=== PATIENT | male | born 1940 | race Caucasian/White ===

== ENCOUNTER 2018-05-26 08:11 | Inpatient (IN) | payer OTHER ==
--- NOTE | 2018-05-26 08:16 | EDPHY ---
H & P Time Seen by Provider: 05/26/18 08:15 HPI/ROS: Chief complaint. Syncope HPI. Patient is a 77-year-old male here by EMS he had 2 syncopal episodes this morning. He was sitting on the toilet and had a syncopal episode and fell off the toilet and skinned his nose. His got him up and into a chair and went to get him some coffee. While she was talking with him she noted that his eyes rolled back and he became somewhat unresponsive for 15 or 20 sec. EMS was called. Patient tells me that he also had an unwitnessed syncopal episode while working at his desk 3-4 days ago. He has had dizzy spells and workup has been normal per his regular healthcare provider at [facility]. He tells me he has no chest pain or shortness of breath. No abdominal pain. No headache or change in his vision. He has not been sick without fever or cough ROS Constitutional. no fever/chills, no weakness Eyes. no problems with vision ENT. no sore throat, no nasal drainage Cardiovascular. no chest pain Respiratory. no shortness of breath, no cough Abdominal. no abdominal pain, no nausea/vomiting, no diarrhea . no problems urinating MS. no calf pain/swelling, no neck/back pain, no joint pain Skin. no rash Lymph. no swollen glands Neuro. Syncope Past Medical/Surgical History: Past medical history significant for hypertension and vertigo Social History: Patient is , nonsmoker, no alcohol Physical Exam: General Appearance: Alert well-developed male no distress vital signs are stable Eyes: Pupils equal and round no pallor or injection. ENT, Mouth: Mucous membranes are moist. Respiratory: There are no retractions, lungs are clear to auscultation. Cardiovascular: Regular rate and rhythm. Gastrointestinal: Abdomen is soft and nontender, no masses, bowel sounds normal. Neurological: Awake and alert, sensory and motor exams grossly normal. Skin: Abrasion to nose Musculoskeletal: Neck is supple nontender. Extremities symmetrical, full range of motion. Psychiatric: Patient is oriented X 3, there is no agitation. Constitutional: Initial Vital Signs Temperature (C) 36.7 C 05/26/18 08:13 Heart Rate 73 05/26/18 08:13 Respiratory Rate 18 05/26/18 08:13 Blood Pressure 182/97 H 05/26/18 08:13 O2 Sat (%) 90 L 05/26/18 08:13 O2 Delivery Mode Nasal Cannula O2 (L/minute) 2 Allergies/Adverse Reactions: aspirin [From Percodan] Allergy (Verified 01/23/11 18:45) lisinopril Allergy (Verified 05/26/18 08:20) oxycodone HCl [From Percodan] Allergy (Verified 05/26/18 08:20) oxycodone terephthalate [From Percodan] Allergy (Verified 05/26/18 08:20) Home Medications: Medication Instructions Recorded Atorvastatin Calcium [Lipitor 20 20 mg PO DAILY 05/26/18 mg (*)] Cholecalciferol Vit D3 [Vitamin D3 1,000 units PO DAILY 05/26/18 (*)] Multivitamins [Multivitamin (*)] 1 each PO DAILY 05/26/18 Vit C/Dl-E AC/Lut/Copper/Znox 1 each PO BID 05/26/18 [Preservision Softgel] Medical Decision Making - Diagnostics EKG Interpretation: EKG interpreted by me shows normal sinus rhythm with borderline first-degree AV block. Left axis deviation. QRS is otherwise normal. There is no significant ST elevation or depression. No arrhythmia. The rate is 68 Imaging Results: One-view chest x-ray interpreted by me is unremarkable Procedures: IV normal saline, monitor ED Course/Re-evaluation: While in taking the patient's history he becomes unresponsive. He has a monitor. Patient had a sinus pause of 13-16 seconds. With a sternal rub he regains heartbeat and consciousness.. Patient is transferred to room 2 and pacer pads are placed. Atropine at bedside I consulted and discussed the case with Dr. Watts, cardiology who sees the patient in the emergency department. The patient, his , and I discussed treatment plan including recommendation for admission and monitoring. They expressed understanding and agreement Differential Diagnosis: It appears that the patient is having syncope due to sinus arrest and periods of asystole. Likely this patient needs a pacemaker. He is on propranolol 10 mg twice daily however this is a fairly low dose and I suspect it is not the likely cause of his sinus pauses and asystole. - Data Points Laboratory Results: Laboratory Results 05/26/18 08:15 05/26/18 08:15 Medications Given: Discontinued Medications Atorvastatin Calcium (Lipitor) 20 mg PO DAILY CHEMO Stop: 11/23/18 08:59 Last Admin: 05/27/18 09:19 Dose: 20 mg Bacitracin (Bacitracin 1000 Ml Irrigation) 50,000 units IRR ONCE ONE Stop: 05/26/18 12:31 Last Admin: 05/26/18 14:20 Dose: Not Given Cholecalciferol (Vitamin D) 1,000 units PO DAILY CHEMO Stop: 11/23/18 08:59 Last Admin: 05/27/18 09:19 Dose: 1,000 units Cefazolin Sodium/Dextrose (Ancef 2 Gm) 100 mls @ 200 mls/hr IV ONCALL ONE Stop: 05/26/18 12:59 Last Admin: 05/26/18 14:20 Dose: Not Given Melatonin (Melatonin) 3 mg PO HS PRN PRN Reason: Sleep/Insomnia Stop: 11/22/18 19:40 Last Admin: 05/26/18 19:58 Dose: 3 mg Multivitamins (Tab-A-Radha) 1 each PO DAILY CHEMO Stop: 11/23/18 08:59 Last Admin: 05/27/18 09:19 Dose: 1 each Multivitamins/Minerals (Preservision Areds2 Formula) 1 each PO BID CHEMO Stop: 11/22/18 20:59 Last Admin: 05/27/18 09:19 Dose: 1 each Point of Care Test Results: Chemistry 05/26/18 08:25 POC Troponin I 0.01 ng/mL ng/mL (0.00-0.08) Departure - Departure Disposition: [facility] Inpatient Acute Clinical Impression: Syncope Qualifiers: Syncope type: unspecified Qualified Code(s): R55 - Syncope and collapse Condition: Good
--- NOTE | 2018-05-26 08:26 | CPEKG ---
Test Reason : OPEN Blood Pressure : / mmHG Vent. Rate : 068 BPM Atrial Rate : 068 BPM P-R Int : 323 ms QRS Dur : 094 ms QT Int : 416 ms P-R-T Axes : 039 -10 043 degrees QTc Int : 443 ms Sinus rhythm Prolonged TX interval Confirmed by Stephan Jones ([id number]) on 05/26/2018 8:25:23 AM Referred By: Confirmed By:Stephan Jones
[2018-05-26 08:29] LABS: PLATELET COUNT 141 10^3/uL (150-400)
[2018-05-26] MEDS ORDERED: ATROPINE SULFATE 1 MG/10 ML SYR ONE (08:47)
[2018-05-26] MEDS ORDERED: ONDANSETRON DISINTEGRATING 4 MG TAB PO PRN (09:40)
[2018-05-26] MEDS ORDERED: ONDANSETRON 4 MG/2 ML VIAL IVP PRN (09:40)
[2018-05-26] MEDS ORDERED: ACETAMINOPHEN 325 MG TAB PO PRN (09:40)
[2018-05-26] MEDS ORDERED: D5W 1/2 NS W/ 20 KCl/L 1,000 ML IV SCH (09:45)
--- NOTE | 2018-05-26 10:38 | PDGENHP ---
History and Physical - Chief Complaint Acute syncope - History of Present Illness PCP: Dr. Valerio [facility] Cards: Dr. Wheat [facility] Urology: Dr. Henao [facility] HPI: 77 yo M p/w 2 syncopal episodes [employer] w/ first one around 5:45 AM while toiletting, second one around 6:45 AM (unwitnessed) with sustained fall and facial trauma. Patient does not recall the events, and he reports that he feels cognitively sluggish at this time. reports unwitnessed fall 4 days prior, w / upper extremity impact. Upon arrival to ED, patient had a witnessed episode of unresponsiveness by Dr. Barakat, with asystole on cardiac monitoring, resolved w/ sternal rub. At baseline, patient has a shuffle gait reportedly from R foot drop, and he rides recumbent bike for 15 minutes daily w/o chest pain or inducible SOB. History Information - Allergies/Home Medication List Allergies/Adverse Reactions: aspirin [From Percodan] Allergy (Verified 01/23/11 18:45) lisinopril Allergy (Verified 05/26/18 08:20) oxycodone HCl [From Percodan] Allergy (Verified 05/26/18 08:20) oxycodone terephthalate [From Percodan] Allergy (Verified 05/26/18 08:20) Home Medications: Aspirin EC [Aspirin EC 81 mg (*)] 81 mg PO DAILY 05/26/18 [Last Taken Unknown] Atorvastatin Calcium [Lipitor 20 mg (*)] 20 mg PO DAILY 05/26/18 [Last Taken Unknown] Cholecalciferol Vit D3 [Vitamin D3 (*)] 1,000 units PO DAILY 05/26/18 [Last Taken Unknown] Multivitamins [Multivitamin (*)] 1 each PO DAILY 05/26/18 [Last Taken Unknown] Propranolol HCl [Inderal 10mg (*)] 10 mg PO BID 05/26/18 [Last Taken Unknown] Vit C/Dl-E AC/Lut/Copper/Znox [Preservision Softgel] 1 each PO BID 05/26/18 [ Last Taken Unknown] I have personally reviewed and updated: family history, medical history, social history, surgical history - Past Medical History hypertension (off Rx x 6 months) Additional medical history: Reported right foot drop. Skin cancer on nose. Bladder cancer. Solitary kidney. Reported 10 year history of vertigo. Most recent cardiac stress test approximately 1.5 years ago, reportedly treadmill - Surgical History Additional surgical history: Tumor resection on bladder. Mohs surgery nose. Bilateral lid surgery - Family History Additional family history: No family history of known cardiac arrhythmias but his father did have cardiac in the setting of known heart issues, mother had Alzheimer's, sister had a cardiac transplant for unclear reasons - Social History Smoking Status: Current every day smoker Alcohol Use: Occasionally Drug Use: None Additional social history: Independent in his ADLs, utilizes recumbent bike for exercise 15 min per day Review of Systems Review of Systems: ROS: 10pt was reviewed & negative except for what was stated in HPI & below Skin: Reports: other (Facial abrasion) Neurological: Reports: other (Syncope, cognitive impairment) Physical Exam Physical Exam: Temp Pulse Resp BP Pulse Ox 37.0 C 69 18 154/87 H 93 05/26/18 10:17 05/26/18 10:17 05/26/18 10:17 05/26/18 10:17 05/26/18 10:17 O2 (L/minute) 2 Constitutional: no apparent distress, not in pain, chronically ill appearing, No uncomfortable Eyes: PERRL, anicteric sclera, EOMI, other (Bilateral inferior lid irritation) Ears, Nose, Mouth, Throat: moist mucous membranes, hearing normal, ears appear normal, no oral mucosal ulcers Cardiovascular: systolic murmur (3/6 at the sternum and apex), No irregularly irregular, No tachycardia, No edema Respiratory: no respiratory distress, no rales or rhonchi, clear to auscultation Gastrointestinal: normoactive bowel sounds, soft, non-tender abdomen, no palpable masses Skin: other (Abrasion on the nose, right anterior scalp without focal necrosis) Neurologic: AAOx3, sensation intact bilaterally, CN II-XII Intact, No weakness ( Motor strength 5/5 bilateral upper and lower extremities) Psychiatric: not anxious, flat affect, poor memory, other (Concentration 7/7, naming of objects 3/3), No agitated Lab Data & Imaging Review 05/26/18 08:15 05/26/18 08:15 WBC 6.50 10^3/uL (3.80-9.50) 05/26/18 08:15 RBC 5.06 10^6/uL (4.40-6.38) 05/26/18 08:15 Hgb 17.5 g/dL (13.7-17.5) 05/26/18 08:15 Hct 51.4 % (40.0-51.0) H 05/26/18 08:15 MCV 101.6 fL (81.5-99.8) H 05/26/18 08:15 MCH 34.6 pg (27.9-34.1) H 05/26/18 08:15 MCHC 34.0 g/dL (32.4-36.7) 05/26/18 08:15 RDW 14.5 % (11.5-15.2) 05/26/18 08:15 Plt Count 141 10^3/uL (150-400) L 05/26/18 08:15 MPV 11.2 fL (8.7-11.7) 05/26/18 08:15 Neut % (Auto) 55.0 % (39.3-74.2) 05/26/18 08:15 Lymph % (Auto) 28.8 % (15.0-45.0) 05/26/18 08:15 [place] % (Auto) 13.1 % (4.5-13.0) H 05/26/18 08:15 Eos % (Auto) 2.6 % (0.6-7.6) 05/26/18 08:15 Baso % (Auto) 0.2 % (0.3-1.7) L 05/26/18 08:15 Nucleat RBC Rel Count 0.0 % (0.0-0.2) 05/26/18 08:15 Absolute Neuts (auto) 3.58 10^3/uL (1.70-6.50) 05/26/18 08:15 Absolute Lymphs (auto) 1.87 10^3/uL (1.00-3.00) 05/26/18 08:15 Absolute Monos (auto) 0.85 10^3/uL (0.30-0.80) H 05/26/18 08:15 Absolute Eos (auto) 0.17 10^3/uL (0.03-0.40) 05/26/18 08:15 Absolute Basos (auto) 0.01 10^3/uL (0.02-0.10) L 05/26/18 08:15 Absolute Nucleated RBC 0.00 10^3/uL (0-0.01) 05/26/18 08:15 Immature Gran % 0.3 % (0.0-1.1) 05/26/18 08:15 Immature Gran # 0.02 10^3/uL (0.00-0.10) 05/26/18 08:15 Sodium 139 mEq/L (135-145) 05/26/18 08:15 Potassium 4.6 mEq/L (3.3-5.0) 05/26/18 08:15 Chloride 104 mEq/L (97-110) 05/26/18 08:15 Carbon Dioxide 30 mEq/l (22-31) 05/26/18 08:15 Anion Gap 5 mEq/L (8-16) L 05/26/18 08:15 BUN 16 mg/dL (7-23) 05/26/18 08:15 Creatinine 0.8 mg/dL (0.7-1.3) 05/26/18 08:15 Estimated GFR > 60 05/26/18 08:15 Glucose 103 mg/dL (70-100) H 05/26/18 08:15 Calcium 9.3 mg/dL (8.5-10.4) 05/26/18 08:15 POC Troponin I 0.01 ng/mL (0.00-0.08) 05/26/18 08:25 Troponin I < 0.012 ng/mL (0.000-0.034) 05/26/18 08:17 TSH 3.690 uIU/mL (0.465-4.680) 05/26/18 08:17 Visualized and Interpreted Chest x-ray results: Yes Chest X-Ray results: other (Mild interstitial prominence) Visualized and Interpreted EKG results: Yes EKG Interpretation: Positive for: other (1st degree AV block, normal sinus rhythm, Q-wave in lead 3) Assessment & Plan Assessment: 77-year-old male presents with syncope secondary to asystole Plan: 1. Asystole. The patient presented with 2 episodes of syncope and then a witnessed asystolic event in the emergency department resulting in unresponsiveness, the likely cause of his original syncopal episodes -responded to sternal rub in emergency department, pacer pads placed -evaluated the patient with Dr. Emery Watts, he has recommended immediate permanent pacemaker placement and the patient will undergo this this afternoon -in the meantime, will keep pacer pads in place and admit him to the step-down unit -get head CT to rule out intracranial hemorrhage, anticipate that he has a closed head injury with some post concussive symptoms including cognitive slowing, get cognitive therapy evaluation -order outside records from [facility] including previous stress test and echocardiogram 2. Hypertension. Chronic, has been off medications for 6 months, monitor Diet. NPO, start regular diet after surgery Prophylaxis. High risk patient, SCDs until surgery, plan for Lovenox tomorrow if no bleeding at pocket Code. Full Disposition. Anticipated discharge uncertain, anticipated length stay greater than 48 hr for reasonable medical necessity including acute asystole requiring emergent permanent pacemaker placement, intensive monitoring. 45 min of critical care time spent with this patient, at bedside with family, coordinating care with Dr. Emery Watts, Dr. Stephan Jones, and Dr. Missael Perkins, specifically the patient's asystole requiring step-down unit and emergent pacemaker placement. The patient remains critically ill with high risk of worsening morbidity and/or mortality and will require immediate intervention. Dr. Stephan Jones has informed me that he has communicated with [facility] of patient's presentation and the patient is unstable for transfer at this time.
[2018-05-26 11:42] LABS: INR 0.99 (0.83-1.16); PROTIME(PATIENT) 13.3 SEC (12.0-15.0)
[2018-05-26] MEDS ORDERED: IOPAMIDOL (ISOVUE-300) 50 ML VIAL ONE (12:08)
[2018-05-26] MEDS ORDERED: LIDOCAINE 1% 300 MG/30 ML SDV ONE (12:08)
[2018-05-26] MEDS ORDERED: fentaNYL 100 MCG/2 ML INJ ONE (12:08)
--- NOTE | 2018-05-26 12:08 | PDGENHP ---
History & Physical Chief Complaint: syncope Relevant Physical Exam: s1s2 sm 11/20. cta. ao x 2, mild intmt confusion Cardiorespiratory Assessment: syncope. 15 s sinus pause. on low dose propranolol for tremors but family wants to move forward with pm. PM implant today. Risks of transvenous pacemaker implantation including but not limited to , myocardial infarction, stroke, cardiac tamponade which may require emergent cardiac surgery, infection, bleeding, pneumothorax, lead dislodgement and risks of sedation/anesthesia were discussed. Long-term issues like pacemaker pocket erosion, lead failure, venous stenosis, superior vena cava syndrome, need for lead extraction were discussed. Need for close long-term follow-up in our device clinic was emphasized. Need for generator change was discussed.
[2018-05-26] MEDS ORDERED: MIDAZOLAM 2 MG/2 ML VIAL ONE (12:09)
[2018-05-26] MEDS ORDERED: BUPIVACAINE 0.5% 30 ML SDV ONE (12:09)
--- NOTE | 2018-05-26 12:10 | PDPROPOC ---
Sedation Plan of Care Sedation Plan of Care: vital signs stable, mental status noted, patient educated of risks, benefits, alternatives, patient can tolerate sedation ASA Classification: ASA 2 Planned drugs: fentanyl, midazolam Mallampati Score: Class 2 Mallampati Reference Image: Patient passed 3-3-2 rule?: Yes
--- NOTE | 2018-05-26 12:13 | PDCARCONS ---
Cardiology Consult Reason for Consult: Syncope Chief Complaint: Syncope this morning Requesting Physician: Emergency department physician History of Present Illness: 77-year-old male, has been having episodes of intermittent vertigo/ lightheadedness for the last several years. Workup has been negative. He has had worsening of symptoms off and on for the past several months. This morning he had syncope while using the bathroom. He came to the emergency department with his in son. He was noted to have a 15 sec sinus arrest with associated syncope, did have sternal rub but no CPR was performed. I visited with him in the emergency department. No chest pain. No shortness of breath at rest. Patient is mildly confused, alert and oriented x2 History Information - Allergies/Home Medication List Allergies/Adverse Reactions: aspirin [From Percodan] Allergy (Verified 01/23/11 18:45) lisinopril Allergy (Verified 05/26/18 08:20) oxycodone HCl [From Percodan] Allergy (Verified 05/26/18 08:20) oxycodone terephthalate [From Percodan] Allergy (Verified 05/26/18 08:20) Home Medications: Aspirin EC [Aspirin EC 81 mg (*)] 81 mg PO DAILY 05/26/18 [Last Taken Unknown] Atorvastatin Calcium [Lipitor 20 mg (*)] 20 mg PO DAILY 05/26/18 [Last Taken Unknown] Cholecalciferol Vit D3 [Vitamin D3 (*)] 1,000 units PO DAILY 05/26/18 [Last Taken Unknown] Multivitamins [Multivitamin (*)] 1 each PO DAILY 05/26/18 [Last Taken Unknown] Propranolol HCl [Inderal 10mg (*)] 10 mg PO BID 05/26/18 [Last Taken Unknown] Vit C/Dl-E AC/Lut/Copper/Znox [Preservision Softgel] 1 each PO BID 05/26/18 [ Last Taken Unknown] I have personally reviewed and updated: family history, medical history, social history, surgical history Past Medical History: - Past Medical History Additional medical history: Murmur - Social History Smoking Status: Current every day smoker Physical Exam Physical Exam: Temp Pulse Resp BP Pulse Ox 37.0 C 69 18 154/87 H 93 05/26/18 10:17 05/26/18 10:17 05/26/18 10:17 05/26/18 10:17 05/26/18 10:17 O2 (L/minute) 2 Constitutional: no apparent distress, appears nourished, not in pain Eyes: PERRL, EOMI Cardiovascular: regular rate and rhythym, systolic murmur Respiratory: no respiratory distress Gastrointestinal: normoactive bowel sounds Genitourinary: no bladder fullness Skin: warm, normal color Musculoskeletal: full muscle strength, no muscle tenderness Psychiatric: flat affect, poor memory Lab and Imaging 05/26/18 08:15 05/26/18 08:15 WBC 6.50 10^3/uL (3.80-9.50) 05/26/18 08:15 RBC 5.06 10^6/uL (4.40-6.38) 05/26/18 08:15 Hgb 17.5 g/dL (13.7-17.5) 05/26/18 08:15 Hct 51.4 % (40.0-51.0) H 05/26/18 08:15 MCV 101.6 fL (81.5-99.8) H 05/26/18 08:15 MCH 34.6 pg (27.9-34.1) H 05/26/18 08:15 MCHC 34.0 g/dL (32.4-36.7) 05/26/18 08:15 RDW 14.5 % (11.5-15.2) 05/26/18 08:15 Plt Count 141 10^3/uL (150-400) L 05/26/18 08:15 MPV 11.2 fL (8.7-11.7) 05/26/18 08:15 Neut % (Auto) 55.0 % (39.3-74.2) 05/26/18 08:15 Lymph % (Auto) 28.8 % (15.0-45.0) 05/26/18 08:15 [place] % (Auto) 13.1 % (4.5-13.0) H 05/26/18 08:15 Eos % (Auto) 2.6 % (0.6-7.6) 05/26/18 08:15 Baso % (Auto) 0.2 % (0.3-1.7) L 05/26/18 08:15 Nucleat RBC Rel Count 0.0 % (0.0-0.2) 05/26/18 08:15 Absolute Neuts (auto) 3.58 10^3/uL (1.70-6.50) 05/26/18 08:15 Absolute Lymphs (auto) 1.87 10^3/uL (1.00-3.00) 05/26/18 08:15 Absolute Monos (auto) 0.85 10^3/uL (0.30-0.80) H 05/26/18 08:15 Absolute Eos (auto) 0.17 10^3/uL (0.03-0.40) 05/26/18 08:15 Absolute Basos (auto) 0.01 10^3/uL (0.02-0.10) L 05/26/18 08:15 Absolute Nucleated RBC 0.00 10^3/uL (0-0.01) 05/26/18 08:15 Immature Gran % 0.3 % (0.0-1.1) 05/26/18 08:15 Immature Gran # 0.02 10^3/uL (0.00-0.10) 05/26/18 08:15 PT 13.3 SEC (12.0-15.0) 05/26/18 11:15 INR 0.99 (0.83-1.16) 05/26/18 11:15 APTT 32.9 SEC (23.0-38.0) 05/26/18 11:15 Sodium 139 mEq/L (135-145) 05/26/18 08:15 Potassium 4.6 mEq/L (3.3-5.0) 05/26/18 08:15 Chloride 104 mEq/L (97-110) 05/26/18 08:15 Carbon Dioxide 30 mEq/l (22-31) 05/26/18 08:15 Anion Gap 5 mEq/L (8-16) L 05/26/18 08:15 BUN 16 mg/dL (7-23) 05/26/18 08:15 Creatinine 0.8 mg/dL (0.7-1.3) 05/26/18 08:15 Estimated GFR > 60 05/26/18 08:15 Glucose 103 mg/dL (70-100) H 05/26/18 08:15 Calcium 9.3 mg/dL (8.5-10.4) 05/26/18 08:15 Magnesium 2.1 mg/dL (1.6-2.3) 05/26/18 08:15 POC Troponin I 0.01 ng/mL (0.00-0.08) 05/26/18 08:25 Troponin I < 0.012 ng/mL (0.000-0.034) 05/26/18 08:17 TSH 3.690 uIU/mL (0.465-4.680) 05/26/18 08:17 Patient ABO/Rh O NEGATIVE 05/26/18 11:15 Antibody Screen NEGATIVE 05/26/18 11:15 EKG additional interpertation: Sinus rhythm, borderline first-degree heart block , CT interval 212 milliseconds, no acute ST or T-wave changes Telemetry: Sinus arrest approximately 15 sec, I personally reviewed these tracings A/P Assessment: 1. Syncope 2. Systolic murmur probably aortic stenosis Plan: 77-year-old male presenting with longstanding history of intermittent lightheadedness, now with syncope associated with sinus pauses of more than 15 sec. He is on propranolol 10 mg twice daily which he has taken for more than 10 years for tremor. It is unlikely that this is etiology of his sinus arrest. I explained to the patient and his family that this might be contributing but is not causing his sinus arrest. 1 option is to wait and watch in the U. Patient initially wanted to take this approach but later in the day I received call from the family that they would like to proceed with pacemaker implantation. Risks of transvenous pacemaker implantation including but not limited to , myocardial infarction, stroke, cardiac tamponade which may require emergent cardiac surgery, infection, bleeding, pneumothorax, lead dislodgement and risks of sedation/anesthesia were discussed. Long-term issues like pacemaker pocket erosion, lead failure, venous stenosis, superior vena cava syndrome, need for lead extraction were discussed. Need for close long- term follow-up in our device clinic was emphasized. Need for generator change was discussed. He also has systolic murmur consistent with aortic stenosis. We will obtain echocardiogram to assess severity. This was a complex discussion with the patient due to need for review of records , discussion of pathophysiology of disease and discussion regarding multiple treatment modalities. I spent 60 minutes with the patient, more than 50% of which was spent in counseling.
[2018-05-26] MEDS ORDERED: BACITRACIN IRRIGATION/NS 50,000 UNITS/1,000 ML BTL IRR ONE (12:30)
[2018-05-26] MEDS ORDERED: ceFAZolin 2 GM/DEXTROSE 100 ML IV ONE (12:30)
--- NOTE | 2018-05-26 12:32 | ECHO ---
[email or web address] [address] [address] Main: [phone] Fax: Transthoracic Echocardiogram Name: JEFFERSON FONTANEZ MR#: [id number] Study Date: 05/26/2018 Study Time: 11:42 AM Date of : 1940 Age: 77 year(s) Height: 175.3 cm (69 in.) Weight: 65.77 kg (145 lb.) BSA: 1.8 m2 Gender: Male Examination: Echo Indication: Cardiac: syncope Image Quality: Adequate Contrast: Requested by: Emery Watts BP: 160 mmHg/68 mmHg Heart Rate: Rhythm: Indication: Cardiac: syncope Procedure Staff Technical Assoc: Mary Mejía [facility] Reading Physician: Walt Tim MD Requesting Provider: Conclusions: EF is 60 %. No regional wall motion abnormality. Normal RV function. The left atrium is moderately dilated. Mild mitral valve regurgitation is present. No mitral stenosis is present. Moderate aortic cusp calcification is present. The aortic valve is tri-leaflet. Moderate calcific aortic valve stenosis. Mean aortic valve gradient 27. Mild aortic valve regurgitation is present. Mild tricuspid regurgitation is present. Right ventricular systolic pressure measures 29mmHg. There is no previous echocardiogram for comparison. Measurements: Chambers Valvular Assessment AV/MV Valvular Assessment TV/PV Normal Normal Normal Name Value Range Name Value Range Name Value Range Ao Betty (MM): 3.4 cm (2.2 cm-3.7 AV Vmax: 3.30 m/s (1 m/s-1.7 TR Vmax: 2.47 mm/s ( - ) cm) m/s) TR PGmax: 24 mmHg ( - ) IVSd (2D): 1.4 cm (0.6 cm-1.1 AV maxP mmHg ( - ) syst. PAP: 29 mmHg ( - ) cm) AV meanP mmHg ( - ) PV Vmax: 1.11 m/s (0.6 m/s-0.9 LVDd (2D): 4.4 cm (4.2 cm-5.9 LUIS A (VTI): 1.0 cm ( - ) m/s) cm) AR (PHT): 494 ms ( - ) PV PGmax: 5 mmHg ( - ) LVDs (2D): 2.6 cm (2.1 cm-4 MV E Vmax: 0.64 m/s ( - ) cm) MV A Vmax: 0.95 m/s ( - ) LVPWd (2D): 1.3 cm (0.6 cm-1 cm) MV E/A: 0.67 ( - ) LVOTd 2.1 cm 2.1 cm mm Patient: JEFFERSON FONTANEZ Study Date: 05/26/2018 Page 1 of 2 11:42 AM LVEF (BP): 60 % (>=55 %) RVDd(2D): 3.2 cm (1.9 cm-3.8 cmmm) Continued Measurements: Chambers Valvular Assessment AV/MV Valvular Assessment TV/PV Name Value Name Value Name Value LADs Lon.5 cm MV DecTime: 303 m/s CVP (est.): 5 mmHg LA Area: 27.7 cm2 MV E' Septal: 0.05 m/s LA Volume: 83 ml MV E/E' Septal: 12.10 LA Volume Index: 46.1 ml/m2 MV E/E' Lateral: 8.20 TAPSE: 2.3 cm AR Vmax: 4.15 cm/s RA Area: 23.4 cm2 Findings: Left Ventricle: Normal size left ventricle. Mild to moderate LVH. Normal global systolic LV function. EF is 60 %. No regional wall motion abnormality. Grade 1 diastolic dysfunction (abnormal relaxation). Right Ventricle: Normal size right ventricle. Normal RV function. Left Atrium: The left atrium is moderately dilated. Right Atrium: The right atrium is mildly dilated. Mitral Valve: There is mild thickening of the mitral valve leaflets. Mild mitral valve regurgitation is present. No mitral stenosis is present. Aortic Valve: Moderate aortic cusp calcification is present. The aortic valve is tri-leaflet. Moderate calcific aortic valve stenosis. Mean aortic valve gradient 27. Mild aortic valve regurgitation is present. Tricuspid Valve: The tricuspid valve is normal in appearance and function. Mild tricuspid regurgitation is present. Right ventricular systolic pressure measures 29mmHg. The pulmonary artery pressure is normal. Pulmonic Valve: Pulmonary valve not well visualized. There is no pulmonic regurgitation seen. Aorta: Normal size aortic root measuring 3.4 cm. Pericardium: No pericardial effusion. (No Signature Object) Patient: JEFFERSON FONTANEZ Study Date: 05/26/2018 Page 2 of 2 11:42 AM [id number]
--- NOTE | 2018-05-26 15:14 | CPEKG ---
Test Reason : OPEN Blood Pressure : / mmHG Vent. Rate : 062 BPM Atrial Rate : 062 BPM P-R Int : 212 ms QRS Dur : 096 ms QT Int : 430 ms P-R-T Axes : 076 -02 040 degrees QTc Int : 437 ms Sinus rhythm Borderline prolonged MS interval Confirmed by Stephan Jones ([id number]) on 05/26/2018 3:13:25 PM Referred By: Confirmed By:Stephan Jones
--- NOTE | 2018-05-26 16:55 | PDMN ---
Medical Necessity Medical necessity: MCG: M340 syncope A-1 days: INPT: 2 syncopal episodes, unresponsiveness in ED, asystole on monitoring and evaluation advisor resolved with sternal rub. , EKG shows 1st degree AV block, NSR, Q wave in lead 3, Immediate PM placement with further monitoring needed, anticipate > 2 MN.
[2018-05-26] MEDS ORDERED: MELATONIN 3 MG TAB PO PRN (19:41)
[2018-05-26] MEDS: PRESERVISION AREDS2 FORMULA EYE VIT 1 EACH PO SCH (19:59)
[2018-05-27 04:40] LABS: PLATELET COUNT 105 10^3/uL (150-400)
--- NOTE | 2018-05-27 07:18 | EPPROC ---
Electrophysiology Procedure Note: Procedure date 05/26/2018 PROCEDURE PERFORMED: 1. Implantation of an V Pacemaker 2. Subclavian vein angiography 3. Fluoroscopy INDICATION: Syncope 15s sinus pauses PROCEDURE NOTE: Patient presented to the cardiac catherization laboratory in a fasting, post absorptive state. Cardiac dental laboratory technician apprentice nurse administered moderate sedation. The left infraclavicular area was prepped and draped in the usual sterile fashion. Lidocaine plus bupivacaine was used for local anesthesia. Left subclavian venography was performed by injection of iodinated contrast into the left antecubital vein. This was done to assure patency of the vein and also to assess for any anatomical aberrations. Using a combination of blunt and sharp dissection and electrocautery, the dissection was carried down to the prepectoral fascia. A pocket was made in this anatomical plane. All bleeding was controlled with electrocautery. The pocket was packed with gauze soaked in antibiotic solution. Fluoroscopy was utilized during the entire procedure for venous access and placement of the leads. Using a direct stick technique the left extrathoracic axillary vein was accessed with 1 stick using the modified Seldinger technique. Placement of the guidewire into the venous system was confirmed by low-pressure blood return and also by visualizing the guide wire advancing into the inferior vena cava. A purse string suture was applied around the guide wire. One #7 [place] sheath was advanced under fluoroscopic guidance over the guidewire. An active fixation ventricular lead was advanced into the right ventricular apex and screwed in place. The peel away sheath was removed. Pacing thresholds, sensing parameters and lead impedances were measured. There was no diaphragmatic stimulation at maximum output. The lead was sutured to the prepectoral fascia with 3 nonabsorbable sutures. The pocket was again inspected for any bleeding. The lead was attached to the pacemaker securely. The pacemaker was inserted into the pocket and secured in place with a nonabsorbable suture. Fluoroscopy was performed in MARLEY and IRANIAN planes to verify right-sided placement of the lead. Also fluoroscopy of the pacemaker pocket was performed. The pacemaker pocket was closed in 3 layers with absorbable monocryl sutures and leonid. Appropriate dressing was applied. The patient left the cardiac catheterization laboratory in stable condition. Serial Numbers: 1. Device: [facility] Assurity MRI 1272 SN [id number] 2. Ventricular Lead: [facility] Tendril [id number] 52 SN [id number] Stimulation Thresholds & Impedance Measurements: 1. Ventricular Lead 0.5V 0.5ms 600ohm R wave 10.6 mV Isaiah Pacing Parameters 1. Pacing mode: VVI 2. Lower rate: 40 ppm Patient Problems: Problems Problem Status Onset Syncope Acute
[2018-05-27 07:24] VITALS: BP 130/58
[2018-05-27] MEDS ORDERED: MULTIVITAMINS 1 EACH TAB PO SCH (09:00)
[2018-05-27] MEDS ORDERED: ATORVASTATIN CALCIUM 20 MG TAB PO SCH (09:00)
[2018-05-27] MEDS ORDERED: CHOLECALCIFEROL VIT D3 1,000 UNITS TAB PO SCH (09:00)
--- NOTE | 2018-05-27 09:16 | ASMTCMCOM ---
CM Note CM Note Notes: 77yr old male admitted for syncope. He has a Hx of HTN, Bladder CA, 1 kidney, Vertigo and he is a smoker. He is to have a pacemaker placed today. CM not anticipating that he will have discharge needs. Date Signed: 05/27/2018 09:15 AM Electronically Signed By:Leanna Armendariz LCSW
[2018-05-27] MEDS: PRESERVISION AREDS2 FORMULA EYE VIT 1 EACH PO SCH (09:19)
--- NOTE | 2018-05-27 10:08 | CPEKG ---
Test Reason : OPEN Blood Pressure : / mmHG Vent. Rate : 073 BPM Atrial Rate : 074 BPM P-R Int : 195 ms QRS Dur : 095 ms QT Int : 418 ms P-R-T Axes : 068 048 037 degrees QTc Int : 461 ms Sinus rhythm Atrial premature complexes in couplets Confirmed by Walt Tim ([id number]) on 05/27/2018 10:08:16 AM Referred By: Confirmed By:Walt Tim
--- NOTE | 2018-05-27 10:38 | WOCRNPDOC ---
[facility] Advanced Assessment Note - Skin Integrity Problem, Advanced Assess Right Elbow Abrasion Dressing Type: Allevyn Life Exudate Amount: Scant Exudate Characteristic(s): Serosanguinous Integumentary Issue Intervention: Visualized Under Dressing Manju Wound Tissue: Erythema Wound Bed Constitution: Red/Ottertail - Non Granular Tissue Site Measurement - Head-to-Toe Length X Width X Depth (cm): 1.5x1x0.1 Skin Integrity Problem Comment: Small partial thickness abrasion. Wound gel and allevyn life are appropriate. Wound care will sign off. Reported to Alexia TIAN. Left Lower Arm Dressing Type: Telfa Dressing Description: Clean/Dry, Intact Exudate Amount: None Integumentary Issue Intervention: Visualized Under Dressing Site Measurement - Head-to-Toe Length X Width X Depth (cm): 4x2x0.1 Skin Integrity Problem Comment: Category 2b skin tear with partial flap that is discolored but readhered. No need for wound care. Wound care will sign off. Treat with allevyn and wound gel.
--- NOTE | 2018-05-27 10:54 | PDIAF ---
- Diagnosis Code Status: Full Code - Medication Management Discharge Medications: Medications to Continue on Transfer Aspirin EC [Aspirin EC 81 mg (*)] 81 mg PO DAILY 05/26/18 [Last Taken Unknown] Atorvastatin Calcium [Lipitor 20 mg (*)] 20 mg PO DAILY 05/26/18 [Last Taken Unknown] Cholecalciferol Vit D3 [Vitamin D3 (*)] 1,000 units PO DAILY 05/26/18 [Last Taken Unknown] Multivitamins [Multivitamin (*)] 1 each PO DAILY 05/26/18 [Last Taken Unknown] Propranolol HCl [Inderal 10mg (*)] 10 mg PO BID 05/26/18 [Last Taken Unknown] Vit C/Dl-E AC/Lut/Copper/Znox [Preservision Softgel] 1 each PO BID 05/26/18 [ Last Taken Unknown] Discharge Medications: Refer to the Discharge Home Medication list for PRN reason. - Orders Services needed: Home Care, Physical Therapy, Occupational Therapy Home Care Face to Face: I certify that this patient was under my care and that I had the required [id number] encounter meeting the encounter requirements on the discharge day. My findings support the fact that the patient is homebound as defined in Home Care Face to Face Continued: CMS Chapter 7 Medicare Benefits Manual 30.1.1 , The condition of the patient is such that there exists a normal inability to leave home and consequently, leaving home would require a considerable and taxing effort. - Follow Up Care Current Providers and Referrals: Patient,NotPresent [Unknown] - As per Instructions
--- NOTE | 2018-05-27 11:24 | ASMTLACE ---
LACE Length of stay for Answers: 1 day current admission Acuity / Level of Answers: Yes Care: Did the patient have an inpatient admission? Comorbidities - select Answers: Any tumor (including all that apply lymphoma or leukemia) Other Notes: HTN, syncope # of Emergency department Answers: 1-2 visits in the last 6 months Score: 8 Date Signed: 05/27/2018 11:23 AM Electronically Signed By:Leanna Armendariz LCSW
--- NOTE | 2018-05-27 11:52 | ASMTDCNOTE ---
Case Management Discharge Discharge Order Complete? Answers: Yes Patient to Obtain Answers: via Family Medications Transportation Arranged Answers: Family/Friends Transport will Pick (Date 05/27/2018 01:00 PM & Time) Faxed Final Orders Answers: Yes Notes: [facility] Family Notified Answers: Yes Notes: and son to transpo rt Discharge Comments Notes: Patient has been discharged home w/HC services. Will need PT/OT/ST through [facility]. Date Signed: 05/27/2018 11:51 AM Electronically Signed By:Leanna Armendariz LCSW
--- NOTE | 2018-05-27 12:17 | PDCARPN ---
Cardiology Progress Note Chief Complaint: Asystole Syncope Assessment/Plan: Assessment: Asystole leading to Syncopal episode. He is a [facility] patient. PPM placed by Emery Watts MD yesterday 05/26/18 He has been up ambulating with PT today. Oxygen Sat 85 with walking, and 88% at rest. He has not had oxygen at home. His nurse will visit with the Hospitalist regarding home oxygen. Left pectoral Pacer site intact with no significant swelling, Mild ecchymosis into axillary area. Dressing in place with no indication of bleeding. He will go home with a sling to use at night the first 2 to 3 nights to remind not to raise left arm above shoulder. No heaving lifting pulling or pushing for 4 weeks. Leave dressing in place until his one week appointment at [facility] 06/03/18 3:[address] Watts one month 06/28/18 at 9:45. Plan: Home with pacemaker precautions. Follow up appointments as above. 05/27/18 12:08 Reviewed/Discussed With: family, multidisciplinary team Time Spent with Patient: greater than 25 minutes Time Spent with Patient: Greater than 25 minutes spent on this patients care, greater than 50% of time spent counseling, educating, and coordinating care regarding the above mentioned plan. Objective: Vital Signs (8 Hrs) Temp Pulse Resp BP Pulse Ox 05/27/18 11:35 36.7 C 80 20 94 05/27/18 07:22 36.7 C 68 16 130/58 H 95 05/27/18 06:17 40 L Intake/Output (24 Hrs) 05/26/18 05/27/18 05/28/18 05:59 05:59 05:59 Intake Total 750 Output Total 275 Balance 475 Intake: Oral (ml) 550 IV Intake (ml) 200 Output: Urine (ml) 275 Urinal 275 Other: Weight 74.6 kg 73.3 kg Number of Voids Toilet 2 Urinal 1 Result Diagrams: 05/27/18 04:20 05/27/18 04:20 - Physical Exam Constitutional: no apparent distress Cardiovascular: regular rate and rhythm, no rubs, no gallops, systolic murmur Respiratory: clear to auscultate bilat, no crackles, no wheezes Skin: warm, no edema, other (pacer site intact w/ minimal swelling, and ecymosis. Drsg dry. No indication of bleeding.) Neurologic: AAOx3 Psychiatric: cooperative, interactive ICD10 Worksheet Patient Problems: Problems Problem Status Onset Syncope Acute
--- NOTE | 2018-05-27 21:09 | PDDCSUM ---
Discharge Summary Discharge Summary: Date of Admission: 05/26/2018 Date of Discharge: 05/27/2018 Consultants: cardiology (Dr Emery Watts) Procedures: pacemaker placement Discharge Diagnoses: 1. Asystole/sinus pauses 2. Syncope 3. Moderate aortic valve stenosis 4. Acute hypoxia 5. Tremor Brief Hospital Course by Problem: 1. Asystole leading to syncope: Had several episodes of syncope at home that prompted him to come to ED. In ED, had syncopal episode on telemetry which showed 15 seconds of asystole. A single lead pacemaker was placed by Dr Watts. He tolerated procedure well and will follow up in device clinic. Instructed him to hold his aspirin until follow up (on for primary prevention). 2. Moderate : Noted on admit TTE with mean gradient 27mmHg, LUIS A 1.0cm2. He is compensated and asymptomatic. Patient has [employer] insurance and is supposed to see a dining room captain through [employer] next month. Alternatively, he may try to transition all his cardiac care to [facility] if his insurance is agreeable to this. 3. Hypoxia: Noted to have intermittent saturations in high 80s after procedure. Suspect atelectasis. Able to adequately maintain O2 sat >90%. Was not discharged with O2. 4. Tremor: Chronic issue. Discontinued his propranolol. Medications: Please refer to EMR for complete list. Changes this admission include discontinuation of propranolol and holding aspirin until follow up. Follow Up Plan: 1. Pacemaker precautions were given prior to discharge 2. Appointment at [facility] in 1 week for incision check 3. Appointment with Dr Watts in 1 month 4. Recommend following up with general dining room captain re: aortic stenosis Physical Exam: Vitals reviewed. Afebrile, HR in 70s, normotensive, O2 saturations 92% on room air. Regular rate and rhythm on cardiac exam with 3/6 systolic murmur heard best at RUSB with radiation to carotids. Pacemaker pocket with mild ecchymosis into axillary area; no erythema or induration. Lungs clear. Abdomen soft. No lower extremity edema or JVD.
== END 2018-05-27 12:08 | disposition home health service (06) | DRG 242 ==
LOC: EDUNIT# → F2N 10:22
PROVIDERS: ADMIT Internal Medicine; ATTEND Internal Medicine
PROC: 02HK3JZ Insertion of Pacemaker Lead into Right Ventricle, Percutaneous Approach (ICD-10-PCS; principal; 2018-05-27)
PROC: 0JH604Z Insertion of Pacemaker, Single Chamber into Chest Subcutaneous Tissue and Fascia, Open Approach (ICD-10-PCS; principal; 2018-05-27)
DX: I44.0 Atrioventricular block, first degree (principal); I46.9 Cardiac arrest, cause unspecified; I10 Essential (primary) hypertension; I70.0 Atherosclerosis of aorta; R09.02 Hypoxemia; R25.1 Tremor, unspecified; Z72.0 Tobacco use
CPT/HCPCS: 84484-PO; 92523-GN; 97116-GP; 97161-GP; 97166-GO; C1786; G8978-GP-CJ; G8979-GP-CJ; G8980-GP-CJ; G8987-GO-CJ; G8988-GO-CJ; G8989-GO-CJ; G9165-GN-CJ; G9166-GN-CI; J0461; J0690; J2250; J3010; Q9967